=== PATIENT | male | born 1950 | race Caucasian/White ===

== ENCOUNTER → 2018-05-31 | Outpatient (CLI) | payer OTHER ==
[~2018-05-31] MED LIST: ASPI81TA28 PO; ATOR-24 PO; CICL160A INH; LEVA45AE INH; LISI-725 PO; METO25TA3 PO; RANI150T85 PO; TRN400 PO; UMEC1INH PO
--- NOTE | 2018-05-31 10:44 | DIAGNOSTIC IMAGING REPORT ---
DUPLEX AORTA/IVC/ILIACS COMP CLINICAL HISTORY: ABN FINDINGS ON DIAGNOSTIC IMAGING COMPARISON STUDY: No previous studies for comparison. FINDINGS: Grayscale color flow and spectral imaging was performed. There is no evidence of abdominal aortic aneurysm. There are diffuse atheromatous changes present. The peak systolic velocity within the aorta was 61 cm/s. The right iliac artery measures 12 mm in diameter. The peak systolic velocity was 212 cm/s. A mild stenosis is suspected. The left iliac artery measured 7 mm in diameter. The peak systolic velocity was 424 cm/s. The findings are indicative of a hemodynamically significant stenosis. IMPRESSION: 1. No evidence of aortic or iliac artery aneurysm 2. 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 05/31/2018 10:43 AM Dictated Date/Time: 05/31/2018 10:39 AM
== END | disposition home or self-care (01) ==
LOC: C.ULTR 09:23
PROVIDERS: ATTEND Physician Assistant
DX: I73.9 Peripheral vascular disease, unspecified (principal)